=== PATIENT | female | born 1960 ===

== ENCOUNTER 2020-04-03 12:26 | Emergency (ER) | payer BC, OTHER ==
[2020-04-03] MEDS ORDERED: Sodium Chloride 0.9% 2.5 ML Syringe FLUSH PRN (12:39)
[2020-04-03] MEDS ORDERED: Sodium Chloride 0.9% 10 ML Syringe FLUSH PRN (12:39)
[2020-04-03] MEDS ORDERED: Ondansetron 4 MG/2 ML SDV IVPUSH ONE (12:39)
[2020-04-03] MEDS ORDERED: Lactated Ringers 1,000 ML IV SCH (12:45)
[2020-04-03 13:33] LABS: POTASSIUM,K 3.3 mmol/L (3.5-5.1)
--- NOTE | 2020-04-03 13:51 | CR ---
INDICATION: Cough, fever TECHNIQUE: Chest radiograph 1 view COMPARISON: None FINDINGS: Mediastinum: The mediastinum is normal in appearance. Mild cardiomegaly is noted. Lung: Both lungs are unremarkable in appearance. No sign of pleural effusion seen. No pneumothorax is identified. Bone and Soft tissue: Unremarkable for age. IMPRESSION: 1. Mild cardiomegaly is noted. Dictated by Karthikeyan Samaniego MD @ 04/03/2020 1:44:33 PM Dictated by: Karthikeyan Samaniego MD @ 04/03/2020 13:50:36 (Electronically Signed)
--- NOTE | 2020-04-03 14:39 | EDM.PDOC ---
ED HPI GENERAL MEDICAL PROBLEM - General Chief Complaint: Abdominal Pain Stated Complaint: VOMITTING,DIARRHEA,FEVER Time Seen by Provider: 04/03/20 12:28 - History of Present Illness INITIAL COMMENTS - FREE TEXT/NARRATIVE: 59-year-old female presenting with abdominal pain nausea nonbloody nonbilious emesis and nonbloody diarrhea associated with a cough that initially was dark and bloody but now has minimal blood associated with it. Patient also reports fevers over the last few days and diffuse myalgias. No prior abdominal surgeries symptoms constant without exacerbating or alleviating factors radiation or other associated symptoms no headache no neck stiffness no recent travel muscle Pain Score (Numeric/FACES): 10 - Related Data Allergies Allergy/AdvReac Type Severity Reaction Status Date / Time No Known Allergies Allergy Verified 04/03/20 12:38 Home Meds: Home Meds . [No Known Home Meds] 04/03/20 [History] Past Medical History Cardiovascular History: Reports: Heart Failure, Hypertension - Past Surgical History GI Surgical History: Reports: Cholecystectomy Musculoskeletal Surgical History: Reports: Joint Replacement, Other (See Below) Other Musculoskeletal Surgeries/Procedures:: Bilateral Hips Replaced Social & Family History - Family History Family Medical History: Noncontributory - Tobacco Use Smoking Status *Q: Never Smoker - Recreational Drug Use Recreational Drug Use: Yes Drug Use in Last 12 Months: Yes Recreational Drug Type: Reports: Marijuana/Hashish Recreational Drug Use Frequency: Weekly ED ROS GENERAL - Review of Systems Review Of Systems: See Below Free Text/Narrative/Comment: General: Per HPI Skin: No rash. Eyes: No vision problems. ENT: No sore throat. Neck: No neck stiffness. Respiratory: Per HPI Cardiac: No chest pain. Gastrointestinal: Per HPI Urinary: No dysuria. Musculoskeletal: No myalgias/arthralgias. Neurologic: No headache. ED EXAM, GENERAL - Physical Exam Exam: See Below Free Text/Narrative:: General Appearance: No acute distress, appears comfortable Skin: No rash HEENT: Normocephalic/atraumatic, sclera anicteric, mucous membranes moist Neck: Normal range of motion Chest and Lungs: Bilateral breath sounds, clear to auscultation Cardiovascular: Mildly tachycardic rate and rhythm, no murmur Abdomen: Soft, non-tender Back: Normal Musculoskeletal: No edema or tenderness Neurologic: Awake, alert, no obvious deficits, moving all extremities Psychiatric: Appropriate, cooperative Course - Vital Signs Last Recorded V/S: Last Vital Signs Temp 98.9 F 04/03/20 12:34 Pulse 106 H 04/03/20 14:15 Resp 18 04/03/20 14:15 BP 176/103 H 04/03/20 14:15 Pulse Ox 96 04/03/20 14:15 - Orders/Labs/Meds Orders: Active Orders 24 hr Category Date Time Status CORONAVIRUS COVID-19 PCR PHL Stat Lab 04/03/20 15:43 Ordered Lactated Ringers [Ringers, Lactated] 1,000 ml Med 04/03/20 12:45 Active IV ASDIRECTED Sodium Chloride 0.9% [Normal Saline] 1,000 ml Med 04/03/20 15:15 Active IV ASDIRECTED Sodium Chloride 0.9% [Saline Flush] Med 04/03/20 12:39 Active 10 ml FLUSH ASDIRECTED PRN Sodium Chloride 0.9% [Saline Flush] Med 04/03/20 12:39 Active 2.5 ml FLUSH ASDIRECTED PRN Saline Lock Insert [OM.PC] Stat Oth 04/03/20 12:39 Ordered Medication Orders Lactated Ringer's (Ringers, Lactated) 1,000 mls @ 999 mls/hr IV ASDIRECTED COUNT INCLUDES THE [facility] Last Admin: 04/03/20 13:09 Dose: 999 mls/hr Documented by: VIALMEL Sodium Chloride (Normal Saline) 1,000 mls @ 999 mls/hr IV ASDIRECTED YUDITH Last Admin: 04/03/20 15:14 Dose: 999 mls/hr Documented by: VIALMEL Sodium Chloride (Saline Flush) 10 ml FLUSH ASDIRECTED PRN PRN Reason: Keep Vein Open Last Admin: 04/03/20 13:10 Dose: 10 ml Documented by: VIALMEL Sodium Chloride (Saline Flush) 2.5 ml FLUSH ASDIRECTED PRN PRN Reason: Keep Vein Open Last Admin: 04/03/20 13:10 Dose: 2.5 ml Documented by: MARIBEL Labs: Laboratory Tests 04/03/20 04/03/20 04/03/20 Range/Units 12:45 12:45 12:45 WBC 5.12 (4.0-11.0) K/uL RBC 5.13 (4.30-5.90) M/uL Hgb 15.5 (12.0-16.0) g/dL Hct 45.4 (36.0-46.0) % MCV 88.5 (80.0-98.0) fL MCH 30.2 (27.0-32.0) pg MCHC 34.1 (31.0-37.0) g/dL RDW Std Deviation 48.1 (28.0-62.0) fl RDW Coeff of Mu 15 (11.0-15.0) % Plt Count 159 (150-400) K/uL MPV 11.70 (7.40-12.00) fL Neut % (Auto) 68.3 (48.0-80.0) % Lymph % (Auto) 17.2 (16.0-40.0) % [place] % (Auto) 14.3 (0.0-15.0) % Eos % (Auto) 0.0 (0.0-7.0) % Baso % (Auto) 0.2 (0.0-1.5) % Neut # (Auto) 3.5 (1.4-5.7) K/uL Lymph # (Auto) 0.9 (0.6-2.4) K/uL [place] # (Auto) 0.7 (0.0-0.8) K/uL Eos # (Auto) 0.0 (0.0-0.7) K/uL Baso # (Auto) 0.0 (0.0-0.1) K/uL Nucleated RBC % 0.0 /100WBC Nucleated RBCs # 0 K/uL Lactate 1.6 (0.20-2.00) mmol/L Sodium 135 L (136-145) mmol/L Potassium 3.3 L (3.5-5.1) mmol/L Chloride 99 (98-107) mmol/L Carbon Dioxide 25.0 (21.0-32.0) mmol/L BUN 9 (7.0-18.0) mg/dL Creatinine 1.0 (0.6-1.0) mg/dL Est Cr Clr Drug Dosing 43.51 mL/min Estimated GFR (MDRD) 56.7 ml/min Glucose 129 H (74-106) mg/dL Calcium 8.5 (8.5-10.1) mg/dL Magnesium 1.7 L (1.8-2.4) mg/dL Total Bilirubin 0.4 (0.2-1.0) mg/dL AST 26 (15-37) IU/L ALT 40 (14-63) IU/L Alkaline Phosphatase 140 H (46-116) U/L Total Protein 7.2 (6.4-8.2) g/dL Albumin 3.4 (3.4-5.0) g/dL Globulin 3.8 (2.6-4.0) g/dL Albumin/Globulin Ratio 0.9 (0.9-1.6) Lipase 95 (73-393) U/L SARS CoV-2 RNA Rapid JACKSON (NEGATIVE) 04/03/20 Range/Units 15:25 WBC (4.0-11.0) K/uL RBC (4.30-5.90) M/uL Hgb (12.0-16.0) g/dL Hct (36.0-46.0) % MCV (80.0-98.0) fL MCH (27.0-32.0) pg MCHC (31.0-37.0) g/dL RDW Std Deviation (28.0-62.0) fl RDW Coeff of Mu (11.0-15.0) % Plt Count (150-400) K/uL MPV (7.40-12.00) fL Neut % (Auto) (48.0-80.0) % Lymph % (Auto) (16.0-40.0) % [place] % (Auto) (0.0-15.0) % Eos % (Auto) (0.0-7.0) % Baso % (Auto) (0.0-1.5) % Neut # (Auto) (1.4-5.7) K/uL Lymph # (Auto) (0.6-2.4) K/uL [place] # (Auto) (0.0-0.8) K/uL Eos # (Auto) (0.0-0.7) K/uL Baso # (Auto) (0.0-0.1) K/uL Nucleated RBC % /100WBC Nucleated RBCs # K/uL Lactate (0.20-2.00) mmol/L Sodium (136-145) mmol/L Potassium (3.5-5.1) mmol/L Chloride (98-107) mmol/L Carbon Dioxide (21.0-32.0) mmol/L BUN (7.0-18.0) mg/dL Creatinine (0.6-1.0) mg/dL Est Cr Clr Drug Dosing mL/min Estimated GFR (MDRD) ml/min Glucose (74-106) mg/dL Calcium (8.5-10.1) mg/dL Magnesium (1.8-2.4) mg/dL Total Bilirubin (0.2-1.0) mg/dL AST (15-37) IU/L ALT (14-63) IU/L Alkaline Phosphatase (46-116) U/L Total Protein (6.4-8.2) g/dL Albumin (3.4-5.0) g/dL Globulin (2.6-4.0) g/dL Albumin/Globulin Ratio (0.9-1.6) Lipase (73-393) U/L SARS CoV-2 RNA Rapid JACKSON POSITIVE H (NEGATIVE) Meds: Medications Generic Name Dose Route Start Last Admin Trade Name Freq PRN Reason Stop Dose Admin Lactated Ringer's 1,000 mls @ 999 mls/hr 04/03/20 12:45 04/03/20 13:09 Ringers, Lactated IV 999 mls/hr ASDIRECTED YUDITH Administration Sodium Chloride 1,000 mls @ 999 mls/hr 04/03/20 15:15 04/03/20 15:14 Normal Saline IV 999 mls/hr ASDIRECTED YUDITH Administration Sodium Chloride 10 ml 04/03/20 12:39 04/03/20 13:10 Saline Flush FLUSH 10 ml ASDIRECTED PRN Administration Keep Vein Open Sodium Chloride 2.5 ml 04/03/20 12:39 04/03/20 13:10 Saline Flush FLUSH 2.5 ml ASDIRECTED PRN Administration Keep Vein Open Discontinued Medications Generic Name Dose Route Start Last Admin Trade Name Freq PRN Reason Stop Dose Admin Diphenhydramine HCl 25 mg 04/03/20 15:11 04/03/20 15:17 Benadryl IVPUSH 04/03/20 15:12 25 mg ONETIME ONE Administration Ketorolac Tromethamine 30 mg 04/03/20 15:11 04/03/20 15:16 Toradol IVPUSH 04/03/20 15:12 30 mg ONETIME ONE Administration Metoclopramide HCl 10 mg 04/03/20 15:11 04/03/20 15:16 Reglan IVPUSH 04/03/20 15:12 10 mg ONETIME ONE Administration Ondansetron HCl 4 mg 04/03/20 12:39 04/03/20 13:10 Zofran IVPUSH 04/03/20 12:40 4 mg ONETIME ONE Administration Departure - Departure Time of Disposition: 16:02 Disposition: Home, Self-Care 01 Condition: Good Clinical Impression: COVID-19 - Discharge Information *PRESCRIPTION DRUG MONITORING PROGRAM REVIEWED*: Not Applicable *COPY OF PRESCRIPTION DRUG MONITORING REPORT IN PATIENT LUCRETIA: Not Applicable Instructions: COVID-19 Frequently Asked Questions, Prevent the Spread of COVID- 19 if You Are Sick - [facility] Referrals: [facility] [Outside] Forms: ED Department Discharge Additional Instructions: It is very important that you isolate yourself at home to prevent the spread of coronavirus to other people. If you develop worsening symptoms particularly if you develop severe shortness of breath please return to the emergency department or call your primary care doctor. You can expect to feel ill for quite some time. The acute illness can last up to 2 weeks. Many people have symptoms for longer than that. The following information is given to patients seen in the emergency department who are being discharged to home. This information is to outline your options for follow-up care. We provide all patients seen in our emergency department with a follow-up referral. The need for follow-up, as well as the timing and circumstances, are variable depending upon the specifics of your emergency department visit. If you don't have a primary care physician on staff, we will provide you with a referral. We always advise you to contact your personal physician following an emergency department visit to inform them of the circumstance of the visit and for follow-up with them and/or the need for any referrals to a consulting specialist. The emergency department will also refer you to a specialist when appropriate. This referral assures that you have the opportunity for follow-up care with a specialist. All of these measure are taken in an effort to provide you with optimal care, which includes your follow-up. Under all circumstances we always encourage you to contact your private physician who remains a resource for coordinating your care. When calling for follow-up care, please make the office aware that this follow-up is from your recent emergency room visit. If for any reason you are refused follow-up, please contact the [facility] Emergency Departm ent at and asked to speak to the emergency department charge nurse. Sepsis Event Note (ED) - Evaluation Sepsis Screening Result: Possible Sepsis Risk - Focused Exam Vital Signs: Vital Signs Temp Pulse Resp BP Pulse Ox 04/03/20 14:15 106 H 18 176/103 H 96 04/03/20 12:34 98.9 F 111 H 20 169/108 H 96 - My Orders Last 24 Hours: My Active Orders 04/03/20 12:39 Sodium Chloride 0.9% [Saline Flush] 10 ml FLUSH ASDIRECTED PRN Sodium Chloride 0.9% [Saline Flush] 2.5 ml FLUSH ASDIRECTED PRN Saline Lock Insert [OM.PC] Stat 04/03/20 12:45 Lactated Ringers [Ringers, Lactated] 1,000 ml IV ASDIRECTED 04/03/20 15:15 Sodium Chloride 0.9% [Normal Saline] 1,000 ml IV ASDIRECTED 04/03/20 15:43 CORONAVIRUS COVID-19 PCR PHL Stat - Assessment/Plan Last 24 Hours: My Active Orders 04/03/20 12:39 Sodium Chloride 0.9% [Saline Flush] 10 ml FLUSH ASDIRECTED PRN Sodium Chloride 0.9% [Saline Flush] 2.5 ml FLUSH ASDIRECTED PRN Saline Lock Insert [OM.PC] Stat 04/03/20 12:45 Lactated Ringers [Ringers, Lactated] 1,000 ml IV ASDIRECTED 04/03/20 15:15 Sodium Chloride 0.9% [Normal Saline] 1,000 ml IV ASDIRECTED 04/03/20 15:43 CORONAVIRUS COVID-19 PCR PHL Stat Assessment:: 59-year-old female presenting with signs and symptoms most consistent with viral illness versus gastroenteritis versus pneumonia. Coronavirus considered as well. Patient given Zofran and IV fluids if renal function is normal will add Toradol. X-ray pending as well. Patient has normal work of breathing normal O2 saturation if symptoms improve labs unremarkable and she tolerates p.o. will likely be stable for discharge. Patient's labs are normal chest x-ray normal patient is indeed positive for COVID-19. Standard quarantine instructions and discharge instructions provided normal work of breathing normal oxygen saturation tolerated p.o. here no indication for inpatient admission at this time.
[2020-04-03] MEDS ORDERED: diphenhydrAMINE 50 MG/ML SDV IVPUSH ONE (15:11)
[2020-04-03] MEDS ORDERED: Metoclopramide 10 MG/2 ML SDV IVPUSH ONE (15:11)
[2020-04-03] MEDS ORDERED: Ketorolac 30 MG/ML SDV IVPUSH ONE (15:11)
[2020-04-03] MEDS ORDERED: Sodium Chloride 0.9% 1,000 ML IV SCH (15:15)
== END 2020-04-03 16:16 | disposition home or self-care (01) ==
LOC: MW.ED 12:26
DX: U07.1 COVID-19 (principal); I11.0 Hypertensive heart disease with heart failure; I50.9 Heart failure, unspecified
CPT/HCPCS: 36415; 71045; 80053; 83605; 83690; 83735; 85025; 87635; 96361; 96374; 96375; 99284; J1200; J1885; J2405; J2765; J7030; J7120; U0002

== ENCOUNTER 2021-12-11 08:21 | Emergency (ER) | payer BC ==
[2021-12-11] MEDS ORDERED: Metoclopramide 10 MG/2 ML SDV IVPUSH ONE (08:25)
[2021-12-11] MEDS ORDERED: Acetaminophen 500 MG Tab PO ONE (08:25)
[2021-12-11] MEDS ORDERED: diphenhydrAMINE 50 MG/ML SDV IVPUSH ONE (08:25)
[2021-12-11 09:22] LABS: BLOOD UREA NITROGEN,BUN 20 mg/dL (7.0-18.0); CARBON DIOXIDE,CO2 22.6 mmol/L (21.0-32.0); CHLORIDE,CL 101 mmol/L (98-107); ESTIMATED GFR 64 mL/min (>60); GLUCOSE RANDOM 141 mg/dL (74-106); POTASSIUM,K 4.1 mmol/L (3.5-5.1); SODIUM,NA 135 mmol/L (136-145)
[2021-12-11] MEDS ORDERED: Sodium Chloride 0.9% 1,000 ML IV ONE ×2 (09:42→09:43)
[2021-12-11] MEDS ORDERED: Morphine 4 MG/ML VIAL IVPUSH ONE ×2 (09:47→12:06)
[2021-12-11] MEDS ORDERED: Dicyclomine 10 MG Cap PO ONE (11:13)
[2021-12-11] MEDS ORDERED: Iopamidol 755 MG/ML 500 ML Multipack Bottle IVPUSH ONE (18:30)
== END 2021-12-11 14:08 | disposition home or self-care (01) ==
LOC: MW.ED 08:21
DX: R56.9 Unspecified convulsions (principal); I10 Essential (primary) hypertension; Z79.899 Other long term (current) drug therapy; Z20.822 Contact with and (suspected) exposure to COVID-19
CPT/HCPCS: 36415; 70450; 71045; 74177; 80053; 80305; 80307; 81001; 82803; 83605; 83735; 83880; 84443; 84484; 85025; 87635; 93005; 96361; 96374; 96375; 96376; 99284; A9270; J1200; J2270; J2765; J7030; Q9967; 93010; 99285; U0002